=== PATIENT | female | born 1950 ===

== ENCOUNTER 2024-12-14 06:04 | Day surgery (SDC) | payer MEDICARE, SELFPAY ==
[2024-12-14 07:20] LABS: Glucose - Point of Care 45 mg/dl (70-99)
[2024-12-14] MEDS: DEXTROSE 50% SYRINGE 12.5 GRAMS IV (07:25)
[2024-12-14 07:30] VITALS: BP 156/82
[2024-12-14 07:31] VITALS: BMI 24.2
[2024-12-14 07:45] LABS: Glucose - Point of Care 126 mg/dl (70-99)
[2024-12-14 08:46] LABS: Glucose - Point of Care 95 mg/dl (70-99)
[2024-12-14 09:22] VITALS: BP 116/82
[2024-12-14 09:30] VITALS: BP 133/84
[2024-12-14 09:40] VITALS: BP 152/82
[2024-12-14 09:40] LABS: Glucose - Point of Care 81 mg/dl (70-99)
== END 2024-12-14 09:53 | disposition home or self-care (01) ==
LOC: SDS 06:04
PROVIDERS: ATTENDING PHYSICIAN Internal Medicine Gastroenterology
DX: D12.5 Benign neoplasm of sigmoid colon (principal); D12.7 Benign neoplasm of rectosigmoid junction; K63.5 Polyp of colon; K57.30 Diverticulosis of large intestine without perforation or abscess without bleeding; K64.0 First degree hemorrhoids
CPT/HCPCS: 45349; 82962; 88305